=== PATIENT | male | born 1960 | race Caucasian/White ===

== ENCOUNTER 2024-01-21 11:55 | Inpatient (IN) | payer MEDICARE, MEDICAID, SELFPAY ==
--- NOTE | 2024-01-21 | ECG_ITS ---
Test Reason : QT INTERVAL Blood Pressure : / mmHG Vent. Rate : 082 BPM Atrial Rate : 082 BPM P-R Int : 172 ms QRS Dur : 094 ms QT Int : 378 ms P-R-T Axes : 079 190 054 degrees QTc Int : 441 ms Normal sinus rhythm Right superior axis deviation Incomplete right bundle branch block Right ventricular hypertrophy Abnormal ECG When compared with ECG of 06-FEB-2006 22:31, Incomplete right bundle branch block is now Present Referred By: Francine Garces Electronically Signed By:LAURIE [place]
[2024-01-21 12:03] VITALS: BP 137/78; PULSE 105; RESP 16; TEMP 36.8; O2SAT 96; BMI 30.4
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
[2024-01-21 12:20] LABS: MANUAL DIFF FLAG NO
[2024-01-21 12:37] LABS: Alanine Aminotransferase 15 U/L (0-40); Albumin Level 4.1 g/dL (3.5-5.0); Alkaline Phosphatase 60 U/L (39-117); Anion Gap 17 (12-20); Aspartate Amino Transferase 14 U/L (5-37); Bilirubin Total 0.3 mg/dL (0.0-1.0); Blood Urea Nitrogen 12 mg/dL (9-16); Calcium 9.4 mg/dL (8.4-10.2); Carbon Dioxide 23 mmol/L (22-29); Chloride 106 mmol/L (96-108); Creatinine Clr Calc Pharmacy 97.2; Estimated Glomerular Filt Rate > 60; Ethanol < 10 mg/dL; Glucose Random 106 mg/dL (60-115); Magnesium 1.7 mg/dL (1.6-2.6); Sodium 142 mmol/L (135-145); Total Protein 6.4 g/dL (6.5-8.0)
[2024-01-21 12:38] VITALS: BP 142/73; PULSE 97; RESP 16; O2SAT 99
[2024-01-21 13:39] LABS: Basophils Absolute Auto 0.1 X10*3/uL (0.0-0.2); Basophils Percent Auto 0.6 % (0-2); Eosinophils Absolute Auto 0.2 X10*3/uL (0.0-0.4); Eosinophils Percent Auto 2.1 % (0-4); Hematocrit 39.6 % (42.0-52.0); Hemoglobin 12.8 g/dl (14.0-18.0); Imm Gran Abs Auto 0.03 X10*3/uL (0.00-0.03); Imm Gran Pct Auto 0.3 % (0.0-0.4); Lymphocytes Absolute Auto 1.6 X10*3/uL (1.2-4.9); Mean Corpuscular HGB Conc 32.3 g/dl (31.0-36.0); Mean Corpuscular Hemoglobin 29.1 pg (27.0-33.0); Mean Platelet Volume 10.9 fL (9.4-12.4); Monocytes Absolute Auto 0.6 X10*3/uL (0.1-1.2); Monocytes Percent Auto 6.1 % (2-11); Neutrophils Absolute Auto 6.6 x10*3/uL (2.0-8.3); Neutrophils Percent Auto 72.9 % (45-73); Platelet Count 262 X10*3/uL (160-400); Red Cell Distribution Width 13.6 % (11.0-16.0)
--- NOTE | 2024-01-21 13:43 | PC.NURSE ---
Pt comes to ED today for assistance with his MH. Denies SI/HI but reports seen at [facility] recently for the same thing. Medically stable, only reports pain to his R great toe. VSS, A&Ox3 and cooperative. Pt given snack and regular diet ordered. NAD at this time.
--- NOTE | 2024-01-21 14:11 | PC.NURSE ---
CARE team at bedside
[2024-01-21 15:27] LABS: Appearance Urine Clear; Color Urine Yellow; Glucose Urine UA Negative (Negative); Leukocyte Esterase Urine Negative (Negative); Nitrite Urine Negative (Negative); Urine Blood Negative (Negative); Urine Ketones Negative (Negative); Urine Protein Trace mg/dL (Neg-Trace)
[2024-01-21 15:39] LABS: Amphetamine Screen Urine Not Detected (Not Detect); Barbiturates, Urine Not Detected (Not Detect); Benzodiazepines Screen Urine Not Detected (Not Detect); Buprenorphine Scr Not Detected (Not Detect); Cannabinoid Screen Urine Not Detected (Not Detect); Cocaine Screen Urine Not Detected (Not Detect); Fentanyl, urine Not Detected (Not Detect); Methadone Screen, Urine Not Detected (Not Detect); Opiate Screen Urine Not Detected (Not Detect); Oxycodone Screen Urine Not Detected (Not Detect); Phencyclidine Screen Urine Not Detected (Not Detect)
--- NOTE | 2024-01-21 16:05 | PC.NURSE ---
Awaiting med rec per Pharmacy
--- NOTE | 2024-01-21 17:11 | PC.NURSE ---
Pt.'s home medication reconciliation complete.
[2024-01-21 19:54] VITALS: BP 136/81; PULSE 81; RESP 16; TEMP 36.6; O2SAT 98
[2024-01-21 20:00] VITALS: BP 170/89; PULSE 85; RESP 18; TEMP 36.4; O2SAT 97
[2024-01-21] MEDS: Donepezil HCl 10 MG TABLET PO (20:17)
[2024-01-21] MEDS: traZODone HCL 100 MG TABLET PO (20:17)
[2024-01-21] MEDS: Memantine HCl 10 MG TABLET PO (20:17)
[2024-01-21] MEDS: Lithium Carbonate 300 MG CAPSULE 600 MG PO (20:17)
[2024-01-21] MEDS: HaloperidoL 5 MG TABLET PO (20:17)
[2024-01-21] MEDS: metFORMIN HCl 1,000 MG TABLET 1000 MG PO (20:20)
[2024-01-21] MEDS: Nicotine 21 MG PATCH.TD24 TRANSDERMA (21:44)
[2024-01-21] MEDS: hydrOXYzine HCL 25 MG TABLET PO (21:45)
[2024-01-21] MEDS: Nicotine Polacrilex 2 MG GUM 4 MG BUCCAL (21:47)
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
[2024-01-22] MEDS: Omeprazole 20 MG CAPSULE.DR PO (06:15)
[2024-01-22 07:00] VITALS: BMI 33.5
[2024-01-22 08:00] VITALS: BP 128/77; BP 130/61; PULSE 71; PULSE 85; RESP 18; TEMP 36.3; O2SAT 96; O2SAT 97
[2024-01-22 08:48] LABS: Lithium 0.43 mmol/L (0.60-1.20)
[2024-01-22 08:56] LABS: Estimated Average Glucose 105 mg/dL; Hemoglobin A1c % 5.3 % (<6.0)
[2024-01-22 09:03] LABS: Cholesterol 109 mg/dL (<200); HDL Cholesterol 39 mg/dL (>40); LDL Cholesterol Calculated 49 mg/dL (<100); Magnesium 1.8 mg/dL (1.6-2.6); Triglycerides 108 mg/dL (<150)
[2024-01-22] MEDS: Memantine HCl 10 MG TABLET PO ×2 (09:19→20:43)
[2024-01-22] MEDS: ARIPiprazole 10 MG TABLET PO (09:19)
[2024-01-22 09:20] LABS: Free T4 (Free Thyroxine) 1.05 ng/dL (0.71-1.85); Thyroid Stimulating Hormone 2.26 uIU/mL (0.32-4.0)
[2024-01-22] MEDS: metFORMIN HCl 1,000 MG TABLET 1000 MG PO ×2 (09:20→18:04)
[2024-01-22] MEDS: Atorvastatin Calcium 20 MG TABLET PO (09:20)
[2024-01-22] MEDS: Ezetimibe 10 MG TABLET PO (09:20)
[2024-01-22] MEDS: HaloperidoL 5 MG TABLET PO ×3 (09:20→20:42)
[2024-01-22] MEDS: DULoxetine HCl 60 MG CAPSULE.DR 120 MG PO (09:20)
[2024-01-22 09:32] LABS: Folate 9.4 ng/mL (> or = 4.0); Vitamin B12 280 pg/mL (200-900)
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
[2024-01-22] MEDS: hydrOXYzine HCL 25 MG TABLET PO (10:24)
[2024-01-22] MEDS: Nicotine 21 MG PATCH.TD24 TRANSDERMA (10:27)
[2024-01-22] MEDS: Milk of Magnesia 30 ML ORAL.SUSP PO (13:09)
--- NOTE | 2024-01-22 15:12 | MHC.SL.SWA ---
Speech Pathologist Impression: Risk of aspiration Risk of Aspiration Due to: Reduced Cognition Dysphasia Diet Status: No change at this time Liquid Consistency and Strategies for Safe Swallow: Liquid Intake Recommendation: Thin Liquid Intake Strategies: Small Sips No Straws Solid Food Consistency: Dietary Recommendations: Grnd/Mech Altered (NDD2) Additional Modifications to Solid Foods: Patient is edentulous, has bottom dentures with him but reports his top dentures are broken and left at home. Patient reports he choked once at home one week prior to coming to the hospital. He was also observed by nursing staff to be choking on a piece of a wrap, requiring the Heimlich maneuver. Given patient's recent choking episodes, recommend CONTINUE on a GROUND/MECH ALTERED (NDD2) diet and THIN liquids, with pills WHOLE with LIQUID. Patient is recommended direct supervision and aspiration precautions. Oral Medication Intake: Whole with Liquid Please contact the pharmacy regarding appropriate crushable or liquid drug formulations that are available whenever modified delivery is recommended. Compensatory Strategies and Precautions to be Taken for Safe Swallow: Sitting Upright (90 deg) Double Swallow Liquids from Cup Small Bites and Sips Alternate Liquids/Solids Rate of Ingestion Change Avoid Specific Foods Supervision While Eating and Drinking for Safe Swallow: Total Supervision (1:1) Foods to Avoid: Hard, tough to chew solids, crunchy or chewy foods. Swallowing Recommended Treatments: Compens. Strategy Educat. Recommendation for Speech: Inpatient Speech Therapy Comment: RESISTANCE BRAZER will continue to monitor diet modification/feeding needs and re-assess for potential upgrade if appropriate. Frequency/Duration: Date Range for Service Req: Timeline to reassess: Hired Hand Clinican/Clinical Fellow: No Supervisory Statement: I have reviewed and agree with the student/clinical fellow's documentation: N/A Speech Language Pathologist: Leonor Torres M.A., CCC-RESISTANCE BRAZER
--- NOTE | 2024-01-22 16:36 | PC.NURSE ---
During lunch Stephen choked on a chicken wrap, [facility] did the heimlich maneuver. Stephen appeared to be breathing, he took a sip of water and threw up the piece of chicken wrap. VS obtained, Dr. Schofield notified. Speech evaluation ordered, he reported he uses dentures, didn't have them on, reports he only brought in bottom dentures. He was assessed he was recommended ground mechanical altered (NDD2) diet, thin liquids, pills whole with liquid, direct supervision and aspiration precautions.
[2024-01-22] MEDS: Docusate Sodium 100 MG CAPSULE PO (18:04)
[2024-01-22 18:15] VITALS: BP 155/75
[2024-01-22] MEDS: cloNIDine HCL 0.1 MG TABLET PO (18:15)
[2024-01-22 20:00] VITALS: BP 149/74; PULSE 99; TEMP 36.3; O2SAT 97
[2024-01-22] MEDS: traZODone HCL 100 MG TABLET PO (20:42)
[2024-01-22] MEDS: Donepezil HCl 10 MG TABLET PO (20:42)
[2024-01-22] MEDS: Lithium Carbonate ER 450 MG TABLET.ER 900 MG PO (20:42)
[2024-01-23] MEDS: Omeprazole 20 MG CAPSULE.DR PO (07:19)
[2024-01-23 08:00] VITALS: BP 108/59; PULSE 91; RESP 16; TEMP 36.4; O2SAT 98
[2024-01-23] MEDS: Acetaminophen 325 MG TABLET 650 MG PO ×2 (09:08→20:14)
[2024-01-23] MEDS: Docusate Sodium 100 MG CAPSULE PO (09:09)
[2024-01-23] MEDS: Atorvastatin Calcium 20 MG TABLET PO (09:09)
[2024-01-23] MEDS: Memantine HCl 10 MG TABLET PO ×2 (09:09→20:05)
[2024-01-23] MEDS: ARIPiprazole 10 MG TABLET PO (09:09)
[2024-01-23] MEDS: HaloperidoL 5 MG TABLET PO ×2 (09:10→20:06)
[2024-01-23] MEDS: metFORMIN HCl 1,000 MG TABLET 1000 MG PO ×3 (09:10→20:07)
[2024-01-23] MEDS: DULoxetine HCl 60 MG CAPSULE.DR 120 MG PO (09:10)
[2024-01-23] MEDS: Ezetimibe 10 MG TABLET PO (09:15)
[2024-01-23] MEDS: Glycopyrrolate 1 MG TABLET PO (09:16)
[2024-01-23 14:10] VITALS: BP 137/71
[2024-01-23] MEDS: cloNIDine HCL 0.1 MG TABLET PO (14:10)
--- NOTE | 2024-01-23 14:36 | MHC.SL.SWA ---
Speech Pathologist Impression: Risk of aspiration, oral phase dysphagia Risk of Aspiration Due to: Reduced Cognition Dysphasia Diet Status: No change Liquid Consistency and Strategies for Safe Swallow: Liquid Intake Recommendation: Thin Liquid Intake Strategies: Small Sips Solid Food Consistency: Dietary Recommendations: Grnd/Mech Altered (NDD2) Additional Modifications to Solid Foods: Patient is edentulous, has bottom dentures with him but reports his top dentures are broken and left at home. Patient reports he choked once at home one week prior to coming to the hospital. He was also observed by nursing staff to be choking on a piece of a wrap, requiring the Heimlich maneuver. Given patient's recent choking episodes, recommend CONTINUE on a GROUND/MECH ALTERED (NDD2) diet and THIN liquids, with pills WHOLE with LIQUID. Patient is recommended direct supervision and aspiration precautions. Oral Medication Intake: Whole with Liquid Please contact the pharmacy regarding appropriate crushable or liquid drug formulations that are available whenever modified delivery is recommended. Compensatory Strategies and Precautions to be Taken for Safe Swallow: Sitting Upright (90 deg) Small Bites and Sips Alternate Liquids/Solids Rate of Ingestion Change Avoid Specific Foods Supervision While Eating and Drinking for Safe Swallow: Total Supervision (1:1) Foods to Avoid: Hard, tough to chew solids, crunchy or chewy foods. Swallowing Recommended Treatments: Compens. Strategy Educat. Recommendation for Speech: Inpatient Speech Therapy Comment: MOLD CONSTRUCTION SUPERVISOR will continue to monitor diet modification/feeding needs and re-assess for potential upgrade if appropriate. Frequency/Duration: Date Range for Service Req: Timeline to reassess: Relocation Specialist Clinican/Clinical Fellow: No Supervisory Statement: I have reviewed and agree with the student/clinical fellow's documentation: N/A Speech Language Pathologist: Leonor Torres M.A., CCC-MOLD CONSTRUCTION SUPERVISOR
--- NOTE | 2024-01-23 19:23 | P.PNPSI_ITS ---
Subjective Subjective Date of Service: 01/23/24 Reason For Visit: Schizoaffective disorder, depressed Interim History: Met with patient; discussed with team Patient says that he is feeling a little better today, less anxious, less depressed and less intrusive thoughts. He is hoping perhaps that increasing the lithium is already starting to take effect. Patient continues to agree with this medication regimen rather than increasing antipsychotic medications. Master Carpenter called and left message for outpatient psych provider to discuss for which patient was grateful. Patient shared about his past life, several traumatic experiences and how they have affected him; missing his family and family dynamics. Patient's VNA said that about a year ago he allowed a friend of his to live in his house which was stressful and somewhat traumatic for and that since then patient has been struggling where he was stable for years prior. Master Carpenter asked about this and patient agreed that perhaps this is relevant. He says this person is push she and pushed herself on him and he has trouble saying no. He felt his space was invaded and agrees that perhaps it was since then that he started to struggle more. Mental Status Exam Mental Status Exam Narrative: Pt is alert and oriented; behavior is cooperative, friendly and calm; patient is not in distress; dressed in casual attire and adequately groomed; mood is described as depressed... Anxious and affect congruent; eye contact appropriate; Speech is a little slowed; normal volume and prosody; psychomotor retardation present; thought process is organized and goal directed; Thought content is on depressive and anxiety symptoms; otherwise pertinent to relevant topics; some intrusive paranoid ideations about people judging him; denies any SI/HI. There is no evidence of perceptual disturbance and denies AVH. Patients insight and judgment impaired Diagnostics Vital Signs (24Hr): Vital Signs - 24 hr 01/22/24 20:00 01/23/24 08:00 01/23/24 14:10 Temperature 97.3 F 97.6 F Pulse Rate 99 91 Respiratory Rate 16 Blood Pressure 149/74 H 108/59 L 137/71 Pulse Oximetry 97 98 Oxygen Delivery Method Room Air Room Air BMI result Body Mass Index 33.5 Labs 01/21/24 12:16 01/21/24 12:16 Labs: Laboratory Results - last 48 hr 01/22/24 08:16 Estimat Average Glucose 105 Hemoglobin A1c % 5.3 Magnesium 1.8 Triglycerides 108 Cholesterol 109 LDL Cholesterol, Calc 49 HDL Cholesterol 39 L Vitamin B12 280 Folate 9.4 TSH 2.26 Free T4 1.05 [place] 0.43 L Medications Medications Current Medications Acetaminophen (Acetaminophen 325 Mg Tablet) 650 mg PO Q6H PRN PRN Reason: Headache/Pain Mild Scale (1-3) Last Admin: 01/23/24 09:08 Dose: 650 mg Al Hydroxide/Mg Hydroxide (Magnesium Hydrox/Alum Hydrox 30 Ml Oral.Susp) 30 ml PO Q6H PRN PRN Reason: Heartburn/Nausea Aripiprazole (Aripiprazole 10 Mg Tablet) 10 mg PO DAILY BELIA Last Admin: 01/23/24 09:09 Dose: 10 mg Atorvastatin Calcium (Atorvastatin Calcium 20 Mg Tablet) 20 mg PO DAILY BELIA Last Admin: 01/23/24 09:09 Dose: 20 mg Clonidine HCl (Clonidine Hcl 0.1 Mg Tablet) 0.1 mg PO Q4H PRN; Protocol PRN Reason: anxiety Last Admin: 01/23/24 14:10 Dose: 0.1 mg Clozapine 300 mg/ Clozapine 50 (mg) 350 mg PO BEDTIME BELIA Last Admin: 01/22/24 20:43 Dose: 350 mg Docusate Sodium (Docusate Sodium 100 Mg Capsule) 100 mg PO DAILY BELIA Last Admin: 01/23/24 09:09 Dose: 100 mg Donepezil HCl (Donepezil Hcl 10 Mg Tablet) 10 mg PO BEDTIME BELIA Last Admin: 01/22/24 20:42 Dose: 10 mg Duloxetine HCl (Duloxetine Hcl 60 Mg Capsule.Dr) 120 mg PO DAILY BELIA Last Admin: 01/23/24 09:10 Dose: 120 mg Ezetimibe (Ezetimibe 10 Mg Tablet) 10 mg PO DAILY BELIA Last Admin: 01/23/24 09:15 Dose: 10 mg Glycopyrrolate (Glycopyrrolate 1 Mg Tablet) 1 mg PO DAILY BELIA Last Admin: 01/23/24 09:16 Dose: 1 mg Haloperidol (Haloperidol 5 Mg Tablet) 5 mg PO BID BELIA Last Admin: 01/23/24 09:10 Dose: 5 mg [place] Carbonate ([place] Carbonate Er 450 Mg Tablet.Er) 900 mg PO BEDTIME BELIA Last Admin: 01/22/24 20:42 Dose: 900 mg Magnesium Hydroxide (Milk Of Magnesia 30 Ml Oral.Susp) 30 ml PO DAILY PRN PRN Reason: Constipation Last Admin: 01/22/24 13:09 Dose: 30 ml Memantine (Memantine Hcl 10 Mg Tablet) 10 mg PO BID [facility] Last Admin: 01/23/24 09:09 Dose: 10 mg Metformin HCl (Metformin Hcl 1,000 Mg Tablet) 1,000 mg PO BIDWM [facility] Last Admin: 01/23/24 19:15 Dose: Not Given Nicotine (Nicotine 21 Mg Patch.Td24) 21 mg TRANSDERMA DAILY PRN PRN Reason: nicotine cravings Last Admin: 01/22/24 10:27 Dose: 21 mg Nicotine Polacrilex (Nicotine Polacrilex 2 Mg Gum) 4 mg BUCCAL Q2H PRN PRN Reason: Nicotine Cravings Last Admin: 01/21/24 21:47 Dose: 4 mg Omeprazole (Omeprazole 20 Mg Capsule.Dr) 20 mg PO DAILY@0630 [facility] Last Admin: 01/23/24 07:19 Dose: 20 mg Trazodone HCl (Trazodone Hcl 100 Mg Tablet) 100 mg PO BEDTIME [facility] Last Admin: 01/22/24 20:42 Dose: 100 mg Allergies Allergies Allergy/AdvReac Type Severity Reaction Status Date / Time divalproex sodium Allergy Confusion Verified 01/21/24 12:06 [From Depakote] Assessment & Plan Assessment & Plan (1) Schizoaffective disorder, depressive type: Status: Acute Code(s): F25.1 - Schizoaffective disorder, depressive type (2) PTSD (post-traumatic stress disorder): Status: Acute Code(s): F43.10 - Post-traumatic stress disorder, unspecified (3) Dementia: Status: Acute Code(s): F03.90 - Unspecified dementia, unspecified severity, without behavioral disturbance, psychotic disturbance, mood disturbance, and anxiety Plan Patient is a 63-year-old male with history of schizoaffective disorder, depressed type, anxiety, PTSD, possibly OCD with intrusive thoughts and newer diagnosis of dementia who self presents for worsening depression and anxiety. Patient reports that he is not sure exactly why but he said over the past few months he has felt increasingly paranoid which he describes says worried that people are judging him, thinking about him negatively and thus is afraid to leave the house. He said in the past he could rationalize himself through it, however lately that is been very difficult. He is also afraid of having a panic attack. Patient denies any AVH current or past. Patient repeats he just has a lot of anxiety and depression. Patient also wonders if some of the depression is due to newly diagnosed of dementia as he is aware of increasing forgetfulness and worried about eventually having to go to a home. Also reports some gait disturbance with some recent falls. Patient denies any SI or HI; denies any substance abuse. Formulation/clinical reasoning: Long history of mental illness with diagnosis of schizoaffective disorder, bipolar type. Patient talks about paranoid delusions however it sounds a little more like OCD intrusive thoughts; will continue to explore He is unsure about why his medications are arranged as such and why additional antipsychotics were added instead of Clozaril dose increased (Clozaril for 25 years...Abilify >5 years...Haldol for 2 years). Reviewed labs, med regimen; agrees to increase lithium since it is subtherapeutic and much of his complaint is depression which may be driving anxiety and intrusive thoughts. Patient has a VNA and is consistent with meds -regarding new diagnosis of dementia, patient is already on Namenda and Aricept; will observe gait, however will keep in mind that parkinsonian symptoms might also be due to medications Hospital course: 01/22Patient says that he is feeling a little better today, less anxious, less depressed and less intrusive thoughts. He is hoping perhaps that increasing the lithium is already starting to take effect. Patient continues to agree with this medication regimen rather than increasing antipsychotic medications. Master Carpenter called and left message for outpatient psych provider Patient shared about his past life, several traumatic experiences and how they have affected him; missing his family and family dynamics. Discussed VNA report about incident a year ago when acquaintance/friend who he allowed to live with them had how stressful this event was; patient agrees that perhaps it was since then he has been struggling more -patient very worried about progression of dementia; will discuss case with Dr. Casper for advice on medications Plan: CV Q 15 minute checks IncreaseD lithium to 900 mg q.h.s.; current dose subtherapeutic Continue Clozaril 350 mg; patient initially wanted higher but agrees to increasing lithium instead Continue Abilify 10 mg daily Continue Haldol 5 mg b.i.d. Will add glycopyrrolate at patient's request for daytime drooling, likely due to Clozaril Reach out for collateral, prescriber to discuss medication regimen Consider SSRI for what sounds like perhaps OCD symptoms Patient educated on: diagnosis, medication risk/benefits and therapeutic strategies Informed Consent: understands Reason for continued inpatient stay Substantial Risk for: rapid decompensation Time Spent With Patient Time: Total time managing care of this patient today ____ minutes.
[2024-01-23 20:00] VITALS: BP 124/60; PULSE 86; TEMP 36.4; O2SAT 98
[2024-01-23] MEDS: Donepezil HCl 10 MG TABLET PO (20:05)
[2024-01-23] MEDS: Lithium Carbonate ER 450 MG TABLET.ER 900 MG PO (20:05)
[2024-01-23] MEDS: traZODone HCL 100 MG TABLET PO (20:06)
[2024-01-24] MEDS: Omeprazole 20 MG CAPSULE.DR PO (07:20)
[2024-01-24 08:00] VITALS: BP 117/58; PULSE 91; RESP 20; TEMP 36.4; O2SAT 95
[2024-01-24] MEDS: DULoxetine HCl 60 MG CAPSULE.DR 120 MG PO (08:28)
[2024-01-24] MEDS: ARIPiprazole 10 MG TABLET PO (08:29)
[2024-01-24] MEDS: Atorvastatin Calcium 20 MG TABLET PO (08:29)
[2024-01-24] MEDS: metFORMIN HCl 1,000 MG TABLET 1000 MG PO ×2 (08:29→17:12)
[2024-01-24] MEDS: Glycopyrrolate 1 MG TABLET PO (08:30)
[2024-01-24] MEDS: HaloperidoL 5 MG TABLET PO ×2 (08:31→20:40)
[2024-01-24] MEDS: Docusate Sodium 100 MG CAPSULE PO (08:31)
[2024-01-24] MEDS: Ezetimibe 10 MG TABLET PO (08:31)
[2024-01-24] MEDS: Memantine HCl 10 MG TABLET PO ×2 (08:31→20:40)
[2024-01-24] MEDS: Acetaminophen 325 MG TABLET 650 MG PO ×2 (09:01→20:40)
[2024-01-24 10:11] VITALS: BP 120/66; PULSE 89
[2024-01-24] MEDS: cloNIDine HCL 0.1 MG TABLET PO ×2 (10:14→17:24)
--- NOTE | 2024-01-24 11:48 | HO.PSYCHPN ---
Subjective Subjective Date of Service: 01/24/24 Reason For Visit: Schizoaffective disorder, depressed Subjective Notes: Conditional Voluntary Interim History: He has been visible but continues to be flat and guarded. Eating and sleeping adequately. No complaints of depression or anxiety. No SI. He is on aspiration because of a recent swallowing problem. No changes were made today. Review of Systems Review of Systems Yes all other systems are reviewed and are negative Mental Status Exam Mental Status Exam Narrative: In today's visit he is alert, oriented and pleasant. Normal speech. Moderate eye contact. Affect is appropriate and contained. Moderate dysphoria present. No signs of psychosis. Cognitively is intact. No SI. No abnormalities of gait. No musculoskeletal issues. Judgment is intact Diagnostics Vital Signs (24Hr): Vital Signs - 24 hr 01/23/24 14:10 01/23/24 20:00 01/24/24 08:00 Temperature 97.5 F 97.5 F Pulse Rate 86 91 Respiratory Rate 20 Blood Pressure 137/71 124/60 117/58 L Pulse Oximetry 98 95 Oxygen Delivery Method Room Air Room Air 01/24/24 10:11 Temperature Pulse Rate 89 Respiratory Rate Blood Pressure 120/66 Pulse Oximetry Oxygen Delivery Method BMI result Body Mass Index 33.5 Labs 01/21/24 12:16 01/21/24 12:16 Medications Medications Current Medications Acetaminophen (Acetaminophen 325 Mg Tablet) 650 mg PO Q6H PRN PRN Reason: Headache/Pain Mild Scale (1-3) Last Admin: 01/24/24 09:01 Dose: 650 mg Al Hydroxide/Mg Hydroxide (Magnesium Hydrox/Alum Hydrox 30 Ml Oral.Susp) 30 ml PO Q6H PRN PRN Reason: Heartburn/Nausea Aripiprazole (Aripiprazole 10 Mg Tablet) 10 mg PO DAILY [facility] Last Admin: 01/24/24 08:29 Dose: 10 mg Atorvastatin Calcium (Atorvastatin Calcium 20 Mg Tablet) 20 mg PO DAILY [facility] Last Admin: 01/24/24 08:29 Dose: 20 mg Clonidine HCl (Clonidine Hcl 0.1 Mg Tablet) 0.1 mg PO Q4H PRN; Protocol PRN Reason: anxiety Last Admin: 01/24/24 10:14 Dose: 0.1 mg Clozapine 300 mg/ Clozapine 50 (mg) 350 mg PO BEDTIME [facility] Last Admin: 01/23/24 20:06 Dose: 350 mg Docusate Sodium (Docusate Sodium 100 Mg Capsule) 100 mg PO DAILY [facility] Last Admin: 01/24/24 08:31 Dose: 100 mg Donepezil HCl (Donepezil Hcl 10 Mg Tablet) 10 mg PO BEDTIME [facility] Last Admin: 01/23/24 20:05 Dose: 10 mg Duloxetine HCl (Duloxetine Hcl 60 Mg Capsule.) 120 mg PO DAILY [facility] Last Admin: 01/24/24 08:28 Dose: 120 mg Ezetimibe (Ezetimibe 10 Mg Tablet) 10 mg PO DAILY [facility] Last Admin: 01/24/24 08:31 Dose: 10 mg Glycopyrrolate (Glycopyrrolate 1 Mg Tablet) 1 mg PO DAILY [facility] Last Admin: 01/24/24 08:30 Dose: 1 mg Haloperidol (Haloperidol 5 Mg Tablet) 5 mg PO BID [facility] Last Admin: 01/24/24 08:31 Dose: 5 mg Lyk[place] Carbonate (Lykens Carbonate Er 450 Mg Tablet.Er) 900 mg PO BEDTIME [facility] Last Admin: 01/23/24 20:05 Dose: 900 mg Magnesium Hydroxide (Milk Of Magnesia 30 Ml Oral.Susp) 30 ml PO DAILY PRN PRN Reason: Constipation Last Admin: 01/22/24 13:09 Dose: 30 ml Memantine (Memantine Hcl 10 Mg Tablet) 10 mg PO BID [facility] Last Admin: 01/24/24 08:31 Dose: 10 mg Metformin HCl (Metformin Hcl 1,000 Mg Tablet) 1,000 mg PO BIDWM [facility] Last Admin: 01/24/24 08:29 Dose: 1,000 mg Nicotine (Nicotine 21 Mg Patch.Td24) 21 mg TRANSDERMA DAILY PRN PRN Reason: nicotine cravings Last Admin: 01/22/24 10:27 Dose: 21 mg Nicotine Polacrilex (Nicotine Polacrilex 2 Mg Gum) 4 mg BUCCAL Q2H PRN PRN Reason: Nicotine Cravings Last Admin: 01/21/24 21:47 Dose: 4 mg Omeprazole (Omeprazole 20 Mg Capsule.) 20 mg PO DAILY@0630 [facility] Last Admin: 01/24/24 07:20 Dose: 20 mg Trazodone HCl (Trazodone Hcl 100 Mg Tablet) 100 mg PO BEDTIME [facility] Last Admin: 01/23/24 20:06 Dose: 100 mg Allergies Allergies Allergy/AdvReac Type Severity Reaction Status Date / Time divalproex sodium Allergy Confusion Verified 01/21/24 12:06 [From Depakote] Assessment & Plan Assessment & Plan (1) Schizoaffective disorder, depressive type: Status: Acute Code(s): F25.1 - Schizoaffective disorder, depressive type (2) PTSD (post-traumatic stress disorder): Status: Acute Code(s): F43.10 - Post-traumatic stress disorder, unspecified (3) Dementia: Status: Acute Code(s): F03.90 - Unspecified dementia, unspecified severity, without behavioral disturbance, psychotic disturbance, mood disturbance, and anxiety Plan Patient is a 63-year-old male with history of schizoaffective disorder, depressed type, anxiety, PTSD, possibly OCD with intrusive thoughts and newer diagnosis of dementia who self presents for worsening depression and anxiety. Patient reports that he is not sure exactly why but he said over the past few months he has felt increasingly paranoid which he describes says worried that people are judging him, thinking about him negatively and thus is afraid to leave the house. He said in the past he could rationalize himself through it, however lately that is been very difficult. He is also afraid of having a panic attack. Patient denies any AVH current or past. Patient repeats he just has a lot of anxiety and depression. Patient also wonders if some of the depression is due to newly diagnosed of dementia as he is aware of increasing forgetfulness and worried about eventually having to go to a home. Also reports some gait disturbance with some recent falls. Patient denies any SI or HI; denies any substance abuse. Formulation/clinical reasoning: Long history of mental illness with diagnosis of schizoaffective disorder, bipolar type. Patient talks about paranoid delusions however it sounds a little more like OCD intrusive thoughts; will continue to explore He is unsure about why his medications are arranged as such and why additional antipsychotics were added instead of Clozaril dose increased (Clozaril for 25 years...Abilify >5 years...Haldol for 2 years). Reviewed labs, med regimen; agrees to increase lithium since it is subtherapeutic and much of his complaint is depression which may be driving anxiety and intrusive thoughts. Patient has a VNA and is consistent with meds -regarding new diagnosis of dementia, patient is already on Namenda and Aricept; will observe gait, however will keep in mind that parkinsonian symptoms might also be due to medications Hospital course: 01/22Patient says that he is feeling a little better today, less anxious, less depressed and less intrusive thoughts. He is hoping perhaps that increasing the lithium is already starting to take effect. Patient continues to agree with this medication regimen rather than increasing antipsychotic medications. Tube Building Machine Operator called and left message for outpatient psych provider Patient shared about his past life, several traumatic experiences and how they have affected him; missing his family and family dynamics. Discussed VNA report about incident a year ago when acquaintance/friend who he allowed to live with them had how stressful this event was; patient agrees that perhaps it was since then he has been struggling more -patient very worried about progression of dementia; will discuss case with Dr. Casper for advice on medications 01/23: Continue current regimen and planslan Plan: CV Q 15 minute checks IncreaseD lithium to 900 mg q.h.s.; current dose subtherapeutic Continue Clozaril 350 mg; patient initially wanted higher but agrees to increasing lithium instead Continue Abilify 10 mg daily Continue Haldol 5 mg b.i.d. Will add glycopyrrolate at patient's request for daytime drooling, likely due to Clozaril Reach out for collateral, prescriber to discuss medication regimen Consider SSRI for what sounds like perhaps OCD symptoms Reason for continued inpatient stay Substantial Risk for: med/psych decompensation Time Spent With Patient Time: Total time managing care of this patient today ____ minutes.
[2024-01-24 17:24] VITALS: BP 106/60
[2024-01-24 17:25] VITALS: BP 106/60; PULSE 90; RESP 16; TEMP 36.4; O2SAT 97
[2024-01-24 20:00] VITALS: BP 122/66; PULSE 90; TEMP 36.3; O2SAT 98
[2024-01-24] MEDS: Lithium Carbonate ER 450 MG TABLET.ER 900 MG PO (20:39)
[2024-01-24] MEDS: Donepezil HCl 10 MG TABLET PO (20:39)
[2024-01-24] MEDS: traZODone HCL 100 MG TABLET PO (20:39)
[2024-01-25] MEDS: Omeprazole 20 MG CAPSULE.DR PO (06:34)
[2024-01-25 08:35] VITALS: BP 131/64; PULSE 89; RESP 20; TEMP 36.3; O2SAT 97
[2024-01-25] MEDS: ARIPiprazole 10 MG TABLET PO (08:37)
[2024-01-25] MEDS: Docusate Sodium 100 MG CAPSULE PO (08:38)
[2024-01-25] MEDS: HaloperidoL 5 MG TABLET PO ×2 (08:38→19:59)
[2024-01-25] MEDS: Atorvastatin Calcium 20 MG TABLET PO (08:38)
[2024-01-25] MEDS: Ezetimibe 10 MG TABLET PO (08:38)
[2024-01-25] MEDS: DULoxetine HCl 60 MG CAPSULE.DR 120 MG PO (08:39)
[2024-01-25] MEDS: Memantine HCl 10 MG TABLET PO ×2 (08:40→20:01)
[2024-01-25] MEDS: Glycopyrrolate 1 MG TABLET PO (08:40)
[2024-01-25] MEDS: metFORMIN HCl 1,000 MG TABLET 1000 MG PO ×2 (08:40→17:01)
--- NOTE | 2024-01-25 08:51 | HO.PSYCHPN ---
Subjective Subjective Date of Service: 01/25/24 Reason For Visit: Schizoaffective disorder, depressed Subjective Notes: Conditional Voluntary Interim History: He has been visible but still guarded and flat. Some paranoid ideations and intrusive thoughts reported. Sleeping adequately and eating adequately. He is requesting to go back on a regular diet which I will do no other complaints or side effects. No other changes were made today Review of Systems Review of Systems Yes all other systems are reviewed and are negative Mental Status Exam Mental Status Exam Narrative: In today's visit he is alert, oriented and pleasant. Normal speech. Good eye contact. Affect is appropriate and contained. Moderate dysphoria present. No signs of psychosis. Cognitively is intact. No SI. No abnormalities of gait. No musculoskeletal issues. Judgment is intact Diagnostics Vital Signs (24Hr): Vital Signs - 24 hr 01/24/24 10:11 01/24/24 17:24 01/24/24 17:25 Temperature 97.5 F Pulse Rate 89 90 Respiratory Rate 16 Blood Pressure 120/66 106/60 106/60 Pulse Oximetry 97 Oxygen Delivery Method Room Air 01/24/24 20:00 01/25/24 08:35 Temperature 97.3 F 97.3 F Pulse Rate 90 89 Respiratory Rate 20 Blood Pressure 122/66 131/64 Pulse Oximetry 98 97 Oxygen Delivery Method Room Air Room Air BMI result Body Mass Index 33.5 Labs 01/21/24 12:16 01/21/24 12:16 Medications Medications Current Medications Acetaminophen (Acetaminophen 325 Mg Tablet) 650 mg PO Q6H PRN PRN Reason: Headache/Pain Mild Scale (1-3) Last Admin: 01/24/24 20:40 Dose: 650 mg Al Hydroxide/Mg Hydroxide (Magnesium Hydrox/Alum Hydrox 30 Ml Oral.Susp) 30 ml PO Q6H PRN PRN Reason: Heartburn/Nausea Aripiprazole (Aripiprazole 10 Mg Tablet) 10 mg PO DAILY [facility] Last Admin: 01/25/24 08:37 Dose: 10 mg Atorvastatin Calcium (Atorvastatin Calcium 20 Mg Tablet) 20 mg PO DAILY [facility] Last Admin: 01/25/24 08:38 Dose: 20 mg Clonidine HCl (Clonidine Hcl 0.1 Mg Tablet) 0.1 mg PO Q4H PRN; Protocol PRN Reason: anxiety Last Admin: 01/24/24 17:24 Dose: 0.1 mg Clozapine 300 mg/ Clozapine 50 (mg) 350 mg PO BEDTIME [facility] Last Admin: 01/24/24 20:39 Dose: 350 mg Docusate Sodium (Docusate Sodium 100 Mg Capsule) 100 mg PO DAILY [facility] Last Admin: 01/25/24 08:38 Dose: 100 mg Donepezil HCl (Donepezil Hcl 10 Mg Tablet) 10 mg PO BEDTIME [facility] Last Admin: 01/24/24 20:39 Dose: 10 mg Duloxetine HCl (Duloxetine Hcl 60 Mg Capsule.Dr) 120 mg PO DAILY [facility] Last Admin: 01/25/24 08:39 Dose: 120 mg Ezetimibe (Ezetimibe 10 Mg Tablet) 10 mg PO DAILY [facility] Last Admin: 01/25/24 08:38 Dose: 10 mg Glycopyrrolate (Glycopyrrolate 1 Mg Tablet) 1 mg PO DAILY [facility] Last Admin: 01/25/24 08:40 Dose: 1 mg Haloperidol (Haloperidol 5 Mg Tablet) 5 mg PO BID [facility] Last Admin: 01/25/24 08:38 Dose: 5 mg [place] Carbonate ([place] Carbonate Er 450 Mg Tablet.Er) 900 mg PO BEDTIME [facility] Last Admin: 01/24/24 20:39 Dose: 900 mg Magnesium Hydroxide (Milk Of Magnesia 30 Ml Oral.Susp) 30 ml PO DAILY PRN PRN Reason: Constipation Last Admin: 01/22/24 13:09 Dose: 30 ml Memantine (Memantine Hcl 10 Mg Tablet) 10 mg PO BID [facility] Last Admin: 01/25/24 08:40 Dose: 10 mg Metformin HCl (Metformin Hcl 1,000 Mg Tablet) 1,000 mg PO BIDWM [facility] Last Admin: 01/25/24 08:40 Dose: 1,000 mg Nicotine (Nicotine 21 Mg Patch.Td24) 21 mg TRANSDERMA DAILY PRN PRN Reason: nicotine cravings Last Admin: 01/22/24 10:27 Dose: 21 mg Nicotine Polacrilex (Nicotine Polacrilex 2 Mg Gum) 4 mg BUCCAL Q2H PRN PRN Reason: Nicotine Cravings Last Admin: 01/21/24 21:47 Dose: 4 mg Omeprazole (Omeprazole 20 Mg Capsule.Dr) 20 mg PO DAILY@0630 [facility] Last Admin: 01/25/24 06:34 Dose: 20 mg Trazodone HCl (Trazodone Hcl 100 Mg Tablet) 100 mg PO BEDTIME [facility] Last Admin: 01/24/24 20:39 Dose: 100 mg Allergies Allergies Allergy/AdvReac Type Severity Reaction Status Date / Time divalproex sodium Allergy Confusion Verified 01/21/24 12:06 [From Depakote] Assessment & Plan Assessment & Plan (1) Schizoaffective disorder, depressive type: Status: Acute Code(s): F25.1 - Schizoaffective disorder, depressive type (2) PTSD (post-traumatic stress disorder): Status: Acute Code(s): F43.10 - Post-traumatic stress disorder, unspecified (3) Dementia: Status: Acute Code(s): F03.90 - Unspecified dementia, unspecified severity, without behavioral disturbance, psychotic disturbance, mood disturbance, and anxiety Plan Patient is a 63-year-old male with history of schizoaffective disorder, depressed type, anxiety, PTSD, possibly OCD with intrusive thoughts and newer diagnosis of dementia who self presents for worsening depression and anxiety. Patient reports that he is not sure exactly why but he said over the past few months he has felt increasingly paranoid which he describes says worried that people are judging him, thinking about him negatively and thus is afraid to leave the house. He said in the past he could rationalize himself through it, however lately that is been very difficult. He is also afraid of having a panic attack. Patient denies any AVH current or past. Patient repeats he just has a lot of anxiety and depression. Patient also wonders if some of the depression is due to newly diagnosed of dementia as he is aware of increasing forgetfulness and worried about eventually having to go to a home. Also reports some gait disturbance with some recent falls. Patient denies any SI or HI; denies any substance abuse. Formulation/clinical reasoning: Long history of mental illness with diagnosis of schizoaffective disorder, bipolar type. Patient talks about paranoid delusions however it sounds a little more like OCD intrusive thoughts; will continue to explore He is unsure about why his medications are arranged as such and why additional antipsychotics were added instead of Clozaril dose increased (Clozaril for 25 years...Abilify >5 years...Haldol for 2 years). Reviewed labs, med regimen; agrees to increase lithium since it is subtherapeutic and much of his complaint is depression which may be driving anxiety and intrusive thoughts. Patient has a VNA and is consistent with meds -regarding new diagnosis of dementia, patient is already on Namenda and Aricept; will observe gait, however will keep in mind that parkinsonian symptoms might also be due to medications Hospital course: 01/22Patient says that he is feeling a little better today, less anxious, less depressed and less intrusive thoughts. He is hoping perhaps that increasing the lithium is already starting to take effect. Patient continues to agree with this medication regimen rather than increasing antipsychotic medications. Practice Office Associate called and left message for outpatient psych provider Patient shared about his past life, several traumatic experiences and how they have affected him; missing his family and family dynamics. Discussed VNA report about incident a year ago when acquaintance/friend who he allowed to live with them had how stressful this event was; patient agrees that perhaps it was since then he has been struggling more -patient very worried about progression of dementia; will discuss case with Dr. Casper for advice on medications 01/23: Continue current regimen and plans 01/24: Continue current regimen and plans Plan: CV Q 15 minute checks IncreaseD lithium to 900 mg q.h.s.; current dose subtherapeutic Continue Clozaril 350 mg; patient initially wanted higher but agrees to increasing lithium instead Continue Abilify 10 mg daily Continue Haldol 5 mg b.i.d. Will add glycopyrrolate at patient's request for daytime drooling, likely due to Clozaril Reach out for collateral, prescriber to discuss medication regimen Consider SSRI for what sounds like perhaps OCD symptoms Reason for continued inpatient stay Substantial Risk for: med/psych decompensation Time Spent With Patient Time: Total time managing care of this patient today ____ minutes.
[2024-01-25 12:11] VITALS: BP 147/71; PULSE 90
[2024-01-25] MEDS: cloNIDine HCL 0.1 MG TABLET PO ×2 (12:16→19:58)
[2024-01-25 19:44] VITALS: BP 150/81; PULSE 99; TEMP 36.9; O2SAT 98
[2024-01-25] MEDS: traZODone HCL 100 MG TABLET PO (19:58)
[2024-01-25] MEDS: Lithium Carbonate ER 450 MG TABLET.ER 900 MG PO (19:59)
[2024-01-25] MEDS: Donepezil HCl 10 MG TABLET PO (19:59)
[2024-01-26 05:23] LABS: Clozapine (Clozaril) 448 mcg/L; Norclozapine 222 mcg/L (25-400)
[2024-01-26] MEDS: Omeprazole 20 MG CAPSULE.DR PO (06:39)
[2024-01-26 08:00] VITALS: BP 112/54; PULSE 91; RESP 16; TEMP 36.4; O2SAT 98
[2024-01-26] MEDS: HaloperidoL 5 MG TABLET PO (08:40)
[2024-01-26] MEDS: Memantine HCl 10 MG TABLET PO ×2 (08:40→20:14)
[2024-01-26] MEDS: metFORMIN HCl 1,000 MG TABLET 1000 MG PO ×2 (08:40→18:22)
[2024-01-26] MEDS: ARIPiprazole 10 MG TABLET PO (08:40)
[2024-01-26] MEDS: Glycopyrrolate 1 MG TABLET PO (08:40)
[2024-01-26] MEDS: DULoxetine HCl 60 MG CAPSULE.DR 120 MG PO (08:41)
[2024-01-26] MEDS: Ezetimibe 10 MG TABLET PO (08:41)
[2024-01-26] MEDS: Atorvastatin Calcium 20 MG TABLET PO (08:41)
[2024-01-26] MEDS: Docusate Sodium 100 MG CAPSULE PO (08:41)
--- NOTE | 2024-01-26 09:53 | P.PNPSI_ITS ---
Subjective Subjective Date of Service: 01/26/24 Reason For Visit: Schizoaffective disorder, depressed Interim History: met with patient; discussed with team reports mood still seems better and anxiety down; wonders if maybe increased [place] might be enough. Says would like to get off one of ihis other antipsychotics, preferalby haldol Mental Status Exam Mental Status Exam Narrative: Pt is alert and oriented; behavior is cooperative, friendly and calm; patient is not in distress; dressed in casual attire and adequately groomed; mood is described as better and affect congruent; eye contact appropriate; Speech is normal rate, volume and prosody; no retardation present; thought process is organized and goal directed; Thought content is on treatment; otherwise pertinent to relevant topics; some intrusive paranoid ideations about people judging him; denies any SI/HI. There is no evidence of perceptual disturbance and denies AVH. Patients insight and judgment improving Diagnostics Vital Signs (24Hr): Vital Signs - 24 hr 01/25/24 12:11 01/25/24 19:44 Temperature 98.5 F Pulse Rate 90 99 Blood Pressure 147/71 H 150/81 H Pulse Oximetry 98 Oxygen Delivery Method Room Air BMI result Body Mass Index 33.5 Labs 01/21/24 12:16 01/21/24 12:16 Labs: Laboratory Results - last 48 hr 01/22/24 08:16 Clozapine 448 Norclozapine 222 Medications Medications Current Medications Acetaminophen (Acetaminophen 325 Mg Tablet) 650 mg PO Q6H PRN PRN Reason: Headache/Pain Mild Scale (1-3) Last Admin: 01/24/24 20:40 Dose: 650 mg Al Hydroxide/Mg Hydroxide (Magnesium Hydrox/Alum Hydrox 30 Ml Oral.Susp) 30 ml PO Q6H PRN PRN Reason: Heartburn/Nausea Aripiprazole (Aripiprazole 10 Mg Tablet) 10 mg PO DAILY [facility] Last Admin: 01/26/24 08:40 Dose: 10 mg Atorvastatin Calcium (Atorvastatin Calcium 20 Mg Tablet) 20 mg PO DAILY [facility] Last Admin: 01/26/24 08:41 Dose: 20 mg Clonidine HCl (Clonidine Hcl 0.1 Mg Tablet) 0.1 mg PO Q4H PRN; Protocol PRN Reason: anxiety Last Admin: 01/25/24 19:58 Dose: 0.1 mg Clozapine 300 mg/ Clozapine 50 (mg) 350 mg PO BEDTIME [facility] Last Admin: 01/25/24 19:58 Dose: 350 mg Docusate Sodium (Docusate Sodium 100 Mg Capsule) 100 mg PO DAILY [facility] Last Admin: 01/26/24 08:41 Dose: 100 mg Donepezil HCl (Donepezil Hcl 10 Mg Tablet) 10 mg PO BEDTIME [facility] Last Admin: 01/25/24 19:59 Dose: 10 mg Duloxetine HCl (Duloxetine Hcl 60 Mg Capsule.) 120 mg PO DAILY [facility] Last Admin: 01/26/24 08:41 Dose: 120 mg Ezetimibe (Ezetimibe 10 Mg Tablet) 10 mg PO DAILY [facility] Last Admin: 01/26/24 08:41 Dose: 10 mg Glycopyrrolate (Glycopyrrolate 1 Mg Tablet) 1 mg PO DAILY [facility] Last Admin: 01/26/24 08:40 Dose: 1 mg Haloperidol (Haloperidol 5 Mg Tablet) 5 mg PO BID [facility] Last Admin: 01/26/24 08:40 Dose: 5 mg [place] Carbonate ([place] Carbonate Er 450 Mg Tablet.Er) 900 mg PO BEDTIME [facility] Last Admin: 01/25/24 19:59 Dose: 900 mg Magnesium Hydroxide (Milk Of Magnesia 30 Ml Oral.Susp) 30 ml PO DAILY PRN PRN Reason: Constipation Last Admin: 01/22/24 13:09 Dose: 30 ml Memantine (Memantine Hcl 10 Mg Tablet) 10 mg PO BID [facility] Last Admin: 01/26/24 08:40 Dose: 10 mg Metformin HCl (Metformin Hcl 1,000 Mg Tablet) 1,000 mg PO BIDWM [facility] Last Admin: 01/26/24 08:40 Dose: 1,000 mg Nicotine (Nicotine 21 Mg Patch.Td24) 21 mg TRANSDERMA DAILY PRN PRN Reason: nicotine cravings Last Admin: 01/22/24 10:27 Dose: 21 mg Nicotine Polacrilex (Nicotine Polacrilex 2 Mg Gum) 4 mg BUCCAL Q2H PRN PRN Reason: Nicotine Cravings Last Admin: 01/21/24 21:47 Dose: 4 mg Omeprazole (Omeprazole 20 Mg Capsule.) 20 mg PO DAILY@0630 [facility] Last Admin: 01/26/24 06:39 Dose: 20 mg Trazodone HCl (Trazodone Hcl 100 Mg Tablet) 100 mg PO BEDTIME [facility] Last Admin: 01/25/24 19:58 Dose: 100 mg Allergies Allergies Allergy/AdvReac Type Severity Reaction Status Date / Time divalproex sodium Allergy Confusion Verified 01/21/24 12:06 [From Depakote] Assessment & Plan Assessment & Plan (1) Schizoaffective disorder, depressive type: Status: Acute Code(s): F25.1 - Schizoaffective disorder, depressive type (2) PTSD (post-traumatic stress disorder): Status: Acute Code(s): F43.10 - Post-traumatic stress disorder, unspecified (3) Dementia: Status: Acute Code(s): F03.90 - Unspecified dementia, unspecified severity, without behavioral disturbance, psychotic disturbance, mood disturbance, and anxiety Plan Patient is a 63-year-old male with history of schizoaffective disorder, depressed type, anxiety, PTSD, possibly OCD with intrusive thoughts and newer diagnosis of dementia who self presents for worsening depression and anxiety. Patient reports that he is not sure exactly why but he said over the past few months he has felt increasingly paranoid which he describes says worried that people are judging him, thinking about him negatively and thus is afraid to leave the house. He said in the past he could rationalize himself through it, however lately that is been very difficult. He is also afraid of having a panic attack. Patient denies any AVH current or past. Patient repeats he just has a lot of anxiety and depression. Patient also wonders if some of the depression is due to newly diagnosed of dementia as he is aware of increasing forgetfulness and worried about eventually having to go to a home. Also reports some gait disturbance with some recent falls. Patient denies any SI or HI; denies any substance abuse. Formulation/clinical reasoning: Long history of mental illness with diagnosis of schizoaffective disorder, bipolar type. Patient talks about paranoid delusions however it sounds a little more like OCD intrusive thoughts; will continue to explore He is unsure about why his medications are arranged as such and why additional antipsychotics were added instead of Clozaril dose increased (Clozaril for 25 years...Abilify >5 years...Haldol for 2 years). Reviewed labs, med regimen; agrees to increase lithium since it is subtherapeutic and much of his complaint is depression which may be driving anxiety and intrusive thoughts. Patient has a VNA and is consistent with meds -regarding new diagnosis of dementia, patient is already on Namenda and Aricept; will observe gait, however will keep in mind that parkinsonian symptoms might also be due to medications Hospital course: 01/22Patient says that he is feeling a little better today, less anxious, less depressed and less intrusive thoughts. He is hoping perhaps that increasing the lithium is already starting to take effect. Patient continues to agree with this medication regimen rather than increasing antipsychotic medications. Landscape Contractor called and left message for outpatient psych provider Patient shared about his past life, several traumatic experiences and how they have affected him; missing his family and family dynamics. Discussed VNA report about incident a year ago when acquaintance/friend who he allowed to live with them had how stressful this event was; patient agrees that perhaps it was since then he has been struggling more -patient very worried about progression of dementia; will discuss case with Dr. Casper for advice on medications 01/25 mood seems to be improving; says he feels better, anxiety down; will get Labs tomorrow for lithium level. -have not heard back from outpt provider Plan: CV Q 15 minute checks IncreaseD lithium to 900 mg q.h.s.; current dose subtherapeutic Continue Clozaril 350 mg; patient initially wanted higher but agrees to increasing lithium instead Continue Abilify 10 mg daily Continue Haldol 5 mg b.i.d. Will add glycopyrrolate at patient's request for daytime drooling, likely due to Clozaril Reach out for collateral, prescriber to discuss medication regimen Consider SSRI for what sounds like perhaps OCD symptoms Patient educated on: diagnosis and medication risk/benefits Informed Consent: understands Reason for continued inpatient stay Substantial Risk for: rapid decompensation Time Spent With Patient Time: Total time managing care of this patient today ____ minutes.
--- NOTE | 2024-01-26 13:07 | MHC.SL.SWA ---
Speech Pathologist Impression: Risk of aspiration, oral dysphagia Risk of Aspiration Due to: Reduced Cognition Dysphasia Diet Status: No changes at this time Liquid Consistency and Strategies for Safe Swallow: Liquid Intake Recommendation: Thin Liquid Intake Strategies: Small Sips Solid Food Consistency: Dietary Recommendations: Regular Additional Modifications to Solid Foods: Patient is recommended direct supervision and aspiration precautions. EXTRUSION MANAGER to f/u 1x to monitor tolerance of unmodified diet. Oral Medication Intake: Whole with Liquid Please contact the pharmacy regarding appropriate crushable or liquid drug formulations that are available whenever modified delivery is recommended. Compensatory Strategies and Precautions to be Taken for Safe Swallow: Sitting Upright (90 deg) Small Bites and Sips Alternate Liquids/Solids Rate of Ingestion Change Avoid Specific Foods Supervision While Eating and Drinking for Safe Swallow: Total Supervision (1:1) Foods to Avoid: Hard, tough to chew solids Swallowing Recommended Treatments: Compens. Strategy Educat. Recommendation for Speech: 1 f/u Aircraft Ordnance Technician Clinican/Clinical Fellow: No Supervisory Statement: I have reviewed and agree with the student/clinical fellow's documentation: N/A Speech Language Pathologist: Leonor Torres M.A., CCC-EXTRUSION MANAGER
[2024-01-26] MEDS: Acetaminophen 325 MG TABLET 650 MG PO (15:28)
[2024-01-26] MEDS: cloNIDine HCL 0.1 MG TABLET PO (15:36)
--- NOTE | 2024-01-26 18:12 | MHC.RECOVSUP ---
? Reason for consult Recovery Support o Current location: [id number] o Identified substance use concern: Heroin - Support ? Intervention: o Community resources provided o Harm reduction discussion ? Plan: o Patient to follow up with [facility] after discharge ? Additional information:Met with Patient we talked about Recovery and the different pathways. We talked about Harm reduction and Mental health . Patient stated that he would loke to go to a local intermodal truck driver recovery house and get a head boys tennis coach.
[2024-01-26 20:00] VITALS: BP 124/63; PULSE 93; RESP 16; TEMP 36.8; O2SAT 98
[2024-01-26] MEDS: Donepezil HCl 10 MG TABLET PO (20:13)
[2024-01-26] MEDS: Lithium Carbonate ER 450 MG TABLET.ER 900 MG PO (20:13)
[2024-01-26] MEDS: traZODone HCL 100 MG TABLET PO (21:21)
[2024-01-27] MEDS: LORazepam 1 MG TABLET PO (00:06)
[2024-01-27] MEDS: Omeprazole 20 MG CAPSULE.DR PO (07:03)
[2024-01-27 08:20] VITALS: BP 121/69; PULSE 89; RESP 18; TEMP 36.6; O2SAT 97
[2024-01-27] MEDS: Atorvastatin Calcium 20 MG TABLET PO (09:00)
[2024-01-27] MEDS: metFORMIN HCl 1,000 MG TABLET 1000 MG PO ×2 (09:00→17:19)
[2024-01-27] MEDS: Docusate Sodium 100 MG CAPSULE PO (09:00)
[2024-01-27] MEDS: Glycopyrrolate 1 MG TABLET PO (09:00)
[2024-01-27] MEDS: Memantine HCl 10 MG TABLET PO ×2 (09:00→20:18)
[2024-01-27] MEDS: DULoxetine HCl 60 MG CAPSULE.DR 120 MG PO (09:00)
[2024-01-27] MEDS: Ezetimibe 10 MG TABLET PO (09:00)
[2024-01-27] MEDS: ARIPiprazole 10 MG TABLET PO (09:00)
[2024-01-27 09:46] LABS: Lithium 0.69 mmol/L (0.60-1.20)
[2024-01-27 09:58] LABS: Blood Urea Nitrogen 12 mg/dL (9-16); Creatinine Clr Calc Pharmacy 99.6; Estimated Glomerular Filt Rate > 60
--- NOTE | 2024-01-27 12:18 | MHC.SL.DTX ---
Dysphagia Diet modifications: Last documented Solid diet consistencies: Regular Last documented Liquid consistency: Thin Changes made to current diet?: No: No change Liquid Consistency and Strategies: Liquid Intake Recommendation: Thin Compensatory Strategies for Safe Swallow: Small Sips Compensatory Strategies for Safe Swallow(b): Sitting Upright (90 deg) Small Bites and Sips Alternate Liquids/Solids Rate of Ingestion Change Avoid Specific Foods Solid Food Consistency: Dietary Recommendations: Regular Oral Medication Intake: Whole with Liquid Strategies and Precautions to be Taken for Safe Swallow: Sitting Upright (90 deg) Small Bites and Sips Alternate Liquids/Solids Rate of Ingestion Change Avoid Specific Foods Supervision While Eating and/Drinking: Total Supervision (1:1) Foods to Avoid: Hard, tough to chew solids Swallowing Recommended Treatments: Compens. Strategy Educat. Level of Impact on: Daily activities: None Interpersonal interactions: Education: None Employment: None Community: None Prognosis for Improvement: Good Recommendation for Speech: Inpatient Speech Therapy Comment: After discussion with the Pt, he agrees it will be preferrable for him to maintain an unrestricted diet and select items that he feels he can handle. Pt is stable with his current diet of Regular Solids and Thin Liquids. No further BITUMINOUS DISTRIBUTOR OPERATOR intervention required at this time, please re-refer if status changes. Additional Comments: Over the weekend, provider adjusted diet order to accomodate patient's request to have regular foods. Treatment: Pt is seen prior lunch. He has several bags of chips at his bedside table. He has no complaints about his diet selection. Incidentally he has his menu for tomorrow ready as well. He is noted to select softer items (Egg Salad [place], Baked Fish) over more difficult to chew solids (Cheeseburgers, Pizza) demonstrating good awareness of his limitations due to his lack of upper teeth/dentures. He tolerates sips of thin liquids with ease. He demonstrates again prolonged mastication with a regular solid (cracker), but is eventually able to manage it with adequate oral clearance and no overt s/s of aspiration. Hatchery Manager Clinican/Clinical Fellow: No Supervisory Statement: I have reviewed and agree with the student/clinical fellow's documentation: N/A Speech Language Pathologist: Cody Li M.A., [facility]-BITUMINOUS DISTRIBUTOR OPERATOR
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
[2024-01-27 17:19] VITALS: BP 147/74
[2024-01-27] MEDS: cloNIDine HCL 0.1 MG TABLET PO (17:19)
[2024-01-27 20:00] VITALS: BP 133/60; PULSE 97; RESP 18; TEMP 36.5; O2SAT 98
[2024-01-27] MEDS: Donepezil HCl 10 MG TABLET PO (20:18)
[2024-01-27] MEDS: HaloperidoL 0.5 MG TABLET 2.5 MG PO (20:18)
[2024-01-27] MEDS: Lithium Carbonate ER 450 MG TABLET.ER 900 MG PO (20:18)
[2024-01-27] MEDS: traZODone HCL 100 MG TABLET PO (20:18)
[2024-01-28] MEDS: Omeprazole 20 MG CAPSULE.DR PO (06:48)
[2024-01-28 08:00] VITALS: BP 120/71; PULSE 88; RESP 18; TEMP 36.5; O2SAT 97
[2024-01-28] MEDS: metFORMIN HCl 1,000 MG TABLET 1000 MG PO ×2 (08:50→16:53)
[2024-01-28] MEDS: Atorvastatin Calcium 20 MG TABLET PO (08:50)
[2024-01-28] MEDS: HaloperidoL 0.5 MG TABLET 2.5 MG PO ×2 (08:50→20:13)
[2024-01-28] MEDS: DULoxetine HCl 60 MG CAPSULE.DR 120 MG PO (08:51)
[2024-01-28] MEDS: Glycopyrrolate 1 MG TABLET PO (08:51)
[2024-01-28] MEDS: Ezetimibe 10 MG TABLET PO (08:51)
[2024-01-28] MEDS: cloNIDine HCL 0.1 MG TABLET PO ×2 (08:51→16:27)
[2024-01-28] MEDS: Memantine HCl 10 MG TABLET PO ×2 (08:51→20:13)
[2024-01-28] MEDS: ARIPiprazole 10 MG TABLET PO (08:51)
[2024-01-28] MEDS: Docusate Sodium 100 MG CAPSULE PO (08:51)
[2024-01-28 09:45] LABS: Neut%MD 72.3 %; Neutrophils Absolute Auto 8.7 x10*3/uL (2.0-8.3); WBCANC 12.1 X10*3/uL
[2024-01-28 11:03] LABS: Lithium 0.75 mmol/L (0.60-1.20)
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
[2024-01-28 13:37] LABS: Anion Gap 11 (12-20); Blood Urea Nitrogen 14 mg/dL (9-16); Carbon Dioxide 27 mmol/L (22-29); Chloride 106 mmol/L (96-108); Creatinine Clr Calc Pharmacy 105.6; Estimated Glomerular Filt Rate > 60; Sodium 140 mmol/L (135-145)
[2024-01-28 16:27] VITALS: BP 136/80
[2024-01-28 20:00] VITALS: BP 100/51; PULSE 96; RESP 16; TEMP 36.3; O2SAT 98
[2024-01-28] MEDS: Donepezil HCl 10 MG TABLET PO (20:13)
[2024-01-28] MEDS: traZODone HCL 100 MG TABLET PO (20:13)
[2024-01-28] MEDS: Lithium Carbonate ER 450 MG TABLET.ER 900 MG PO (20:13)
[2024-01-28] MEDS: Acetaminophen 325 MG TABLET 650 MG PO (20:35)
[2024-01-28 21:16] LABS: Glucose, Whole Blood 114 mg/dL (60-115)
[2024-01-29] MEDS: Omeprazole 20 MG CAPSULE.DR PO (06:53)
[2024-01-29 08:10] VITALS: BP 111/65; PULSE 91; RESP 16; TEMP 36.4; O2SAT 96
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
[2024-01-29] MEDS: Atorvastatin Calcium 20 MG TABLET PO (09:10)
[2024-01-29] MEDS: metFORMIN HCl 1,000 MG TABLET 1000 MG PO ×2 (09:10→17:38)
[2024-01-29] MEDS: Ezetimibe 10 MG TABLET PO (09:10)
[2024-01-29] MEDS: Memantine HCl 10 MG TABLET PO ×2 (09:10→20:09)
[2024-01-29] MEDS: Docusate Sodium 100 MG CAPSULE PO (09:10)
[2024-01-29] MEDS: Glycopyrrolate 1 MG TABLET PO (09:10)
[2024-01-29] MEDS: DULoxetine HCl 60 MG CAPSULE.DR 120 MG PO (09:10)
[2024-01-29] MEDS: ARIPiprazole 10 MG TABLET PO (09:10)
[2024-01-29 10:40] LABS: Glucose, Whole Blood 214 mg/dL (60-115)
[2024-01-29 11:55] VITALS: BP 131/81; PULSE 106; O2SAT 98
[2024-01-29] MEDS: cloNIDine HCL 0.1 MG TABLET PO (11:56)
[2024-01-29 20:00] VITALS: BP 110/68; PULSE 89; RESP 16; TEMP 36.3; O2SAT 99
[2024-01-29] MEDS: Donepezil HCl 10 MG TABLET PO (20:09)
[2024-01-29] MEDS: Lithium Carbonate ER 450 MG TABLET.ER 900 MG PO (20:10)
[2024-01-29] MEDS: HaloperidoL 0.5 MG TABLET 2.5 MG PO (20:10)
[2024-01-29] MEDS: traZODone HCL 100 MG TABLET PO (20:10)
[2024-01-29 22:25] LABS: Glucose, Whole Blood 105 mg/dL (60-115)
--- NOTE | 2024-01-30 | ECG_ITS ---
Test Reason : QTC CHECK Blood Pressure : / mmHG Vent. Rate : 091 BPM Atrial Rate : 091 BPM P-R Int : 178 ms QRS Dur : 082 ms QT Int : 350 ms P-R-T Axes : 068 114 057 degrees QTc Int : 430 ms Normal sinus rhythm Right axis deviation Right ventricular hypertrophy Abnormal ECG When compared with ECG of 21-JAN-2024 18:53, Questionable change in QRS axis Referred By: Fortunato Schofield Electronically Signed By:LAURIE [place]
[2024-01-30] MEDS: Omeprazole 20 MG CAPSULE.DR PO (07:19)
[2024-01-30 08:00] VITALS: BP 156/79; PULSE 93; RESP 16; TEMP 36.9; O2SAT 97
[2024-01-30 08:43] LABS: Glucose, Whole Blood 89 mg/dL (60-115)
[2024-01-30] MEDS: DULoxetine HCl 60 MG CAPSULE.DR 120 MG PO (08:55)
[2024-01-30 08:56] VITALS: BP 156/79
[2024-01-30] MEDS: Ezetimibe 10 MG TABLET PO (08:56)
[2024-01-30] MEDS: metFORMIN HCl 1,000 MG TABLET 1000 MG PO ×2 (08:56→17:59)
[2024-01-30] MEDS: ARIPiprazole 10 MG TABLET PO (08:56)
[2024-01-30] MEDS: Atorvastatin Calcium 20 MG TABLET PO (08:56)
[2024-01-30] MEDS: cloNIDine HCL 0.1 MG TABLET PO ×3 (08:56→20:44)
[2024-01-30] MEDS: Glycopyrrolate 1 MG TABLET PO (08:56)
[2024-01-30] MEDS: Memantine HCl 10 MG TABLET PO ×2 (08:56→20:45)
[2024-01-30] MEDS: Docusate Sodium 100 MG CAPSULE PO (09:14)
[2024-01-30] MEDS: HaloperidoL 0.5 MG TABLET 2.5 MG PO ×2 (11:37→20:45)
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
[2024-01-30] MEDS: buPROPion HCl XL 150 MG TAB.ER.24H PO (12:25)
[2024-01-30 14:27] VITALS: BP 142/82
[2024-01-30 20:00] VITALS: BP 117/60; PULSE 96; RESP 18; TEMP 36.7; O2SAT 97
[2024-01-30 20:44] VITALS: BP 117/60
[2024-01-30] MEDS: Donepezil HCl 10 MG TABLET PO (20:44)
[2024-01-30] MEDS: Lithium Carbonate ER 450 MG TABLET.ER 900 MG PO (20:45)
[2024-01-30] MEDS: traZODone HCL 100 MG TABLET PO (20:45)
[2024-01-31 08:30] VITALS: BP 144/79; PULSE 95; RESP 18; TEMP 36.6; O2SAT 98
[2024-01-31] MEDS: metFORMIN HCl 1,000 MG TABLET 1000 MG PO ×2 (08:30→18:06)
[2024-01-31] MEDS: Omeprazole 20 MG CAPSULE.DR PO (08:30)
[2024-01-31] MEDS: buPROPion HCl XL 150 MG TAB.ER.24H PO (09:04)
[2024-01-31] MEDS: Atorvastatin Calcium 20 MG TABLET PO (09:04)
[2024-01-31] MEDS: DULoxetine HCl 60 MG CAPSULE.DR 120 MG PO (09:04)
[2024-01-31] MEDS: ARIPiprazole 10 MG TABLET PO (09:04)
[2024-01-31] MEDS: Ezetimibe 10 MG TABLET PO (09:04)
[2024-01-31] MEDS: Docusate Sodium 100 MG CAPSULE PO (09:05)
[2024-01-31] MEDS: HaloperidoL 0.5 MG TABLET 2.5 MG PO ×2 (09:05→20:57)
[2024-01-31] MEDS: Memantine HCl 10 MG TABLET PO ×2 (09:05→20:56)
[2024-01-31] MEDS: Glycopyrrolate 1 MG TABLET PO (09:05)
[2024-01-31] MEDS: cloNIDine HCL 0.1 MG TABLET PO ×2 (09:17→14:34)
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
[2024-01-31 12:26] LABS: Glucose, Whole Blood 126 mg/dL (60-115)
[2024-01-31 14:34] VITALS: BP 143/74
[2024-01-31 20:00] VITALS: BP 119/61; PULSE 87; RESP 18; TEMP 36.9; O2SAT 98
[2024-01-31] MEDS: traZODone HCL 100 MG TABLET PO (20:57)
[2024-01-31] MEDS: Donepezil HCl 10 MG TABLET PO (20:57)
[2024-01-31] MEDS: Lithium Carbonate ER 450 MG TABLET.ER 900 MG PO (20:58)
[2024-01-31 21:17] LABS: Glucose, Whole Blood 118 mg/dL (60-115)
[2024-02-01] MEDS: Omeprazole 20 MG CAPSULE.DR PO (06:51)
[2024-02-01 07:58] LABS: Glucose, Whole Blood 94 mg/dL (60-115)
[2024-02-01 08:26] VITALS: BP 117/58; PULSE 87; RESP 18; TEMP 36.8; O2SAT 98
[2024-02-01] MEDS: DULoxetine HCl 60 MG CAPSULE.DR 120 MG PO (08:46)
[2024-02-01] MEDS: ARIPiprazole 10 MG TABLET PO (08:47)
[2024-02-01] MEDS: buPROPion HCl XL 300 MG TAB.ER.24H PO (08:47)
[2024-02-01] MEDS: metFORMIN HCl 1,000 MG TABLET 1000 MG PO ×2 (08:47→16:20)
[2024-02-01] MEDS: Docusate Sodium 100 MG CAPSULE PO (08:47)
[2024-02-01] MEDS: Atorvastatin Calcium 20 MG TABLET PO (08:47)
[2024-02-01] MEDS: Memantine HCl 10 MG TABLET PO ×2 (08:47→20:07)
[2024-02-01] MEDS: Glycopyrrolate 1 MG TABLET PO (08:47)
[2024-02-01] MEDS: HaloperidoL 0.5 MG TABLET 2.5 MG PO ×2 (08:47→20:07)
[2024-02-01] MEDS: Ezetimibe 10 MG TABLET PO (08:47)
[2024-02-01] MEDS: Acetaminophen 325 MG TABLET 650 MG PO (10:29)
[2024-02-01 14:18] VITALS: BP 145/71
[2024-02-01] MEDS: cloNIDine HCL 0.1 MG TABLET PO ×2 (14:18→20:12)
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
[2024-02-01 20:00] VITALS: BP 142/60; PULSE 86; RESP 15; TEMP 36.3; O2SAT 99
[2024-02-01] MEDS: Lithium Carbonate ER 450 MG TABLET.ER 900 MG PO (20:06)
[2024-02-01] MEDS: Donepezil HCl 10 MG TABLET PO (20:07)
[2024-02-01] MEDS: traZODone HCL 100 MG TABLET PO (20:07)
[2024-02-01] MEDS: Benztropine Mesylate 0.5 MG TABLET PO (21:24)
[2024-02-01 21:36] LABS: Glucose, Whole Blood 111 mg/dL (60-115)
[2024-02-02] MEDS: Omeprazole 20 MG CAPSULE.DR PO (06:54)
[2024-02-02 07:55] LABS: Glucose, Whole Blood 93 mg/dL (60-115)
[2024-02-02 08:17] VITALS: BP 141/69; PULSE 96; RESP 18; TEMP 36.5; O2SAT 100
[2024-02-02] MEDS: Docusate Sodium 100 MG CAPSULE PO (08:30)
[2024-02-02] MEDS: metFORMIN HCl 1,000 MG TABLET 1000 MG PO ×2 (08:30→16:54)
[2024-02-02] MEDS: buPROPion HCl XL 300 MG TAB.ER.24H PO (08:30)
[2024-02-02] MEDS: Glycopyrrolate 1 MG TABLET PO (08:30)
[2024-02-02] MEDS: HaloperidoL 0.5 MG TABLET 2.5 MG PO ×2 (08:30→20:11)
[2024-02-02] MEDS: Memantine HCl 10 MG TABLET PO ×2 (08:30→20:14)
[2024-02-02] MEDS: DULoxetine HCl 60 MG CAPSULE.DR 120 MG PO (08:30)
[2024-02-02] MEDS: Ezetimibe 10 MG TABLET PO (08:30)
[2024-02-02] MEDS: Atorvastatin Calcium 20 MG TABLET PO (08:30)
[2024-02-02] MEDS: ARIPiprazole 10 MG TABLET PO (08:30)
[2024-02-02 10:47] VITALS: BP 145/84
[2024-02-02] MEDS: cloNIDine HCL 0.1 MG TABLET PO ×2 (10:47→22:28)
[2024-02-02] MEDS: Benztropine Mesylate 0.5 MG TABLET PO (13:30)
[2024-02-02 16:07] VITALS: BP 137/63; PULSE 93; RESP 16; TEMP 36.4; O2SAT 97
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
[2024-02-02] MEDS: traZODone HCL 100 MG TABLET PO (20:10)
[2024-02-02] MEDS: Donepezil HCl 10 MG TABLET PO (20:13)
[2024-02-02] MEDS: Lithium Carbonate ER 450 MG TABLET.ER 900 MG PO (20:13)
[2024-02-02 20:29] LABS: Glucose, Whole Blood 87 mg/dL (60-115)
[2024-02-02 22:28] VITALS: BP 142/76
[2024-02-03] MEDS: Omeprazole 20 MG CAPSULE.DR PO (06:32)
[2024-02-03 08:00] VITALS: BP 110/52; PULSE 78; RESP 20; TEMP 36.4; O2SAT 97
[2024-02-03] MEDS: Glycopyrrolate 1 MG TABLET PO (08:06)
[2024-02-03] MEDS: Docusate Sodium 100 MG CAPSULE PO (08:06)
[2024-02-03] MEDS: buPROPion HCl XL 300 MG TAB.ER.24H PO (08:07)
[2024-02-03] MEDS: Memantine HCl 10 MG TABLET PO ×2 (08:07→19:48)
[2024-02-03] MEDS: Atorvastatin Calcium 20 MG TABLET PO (08:07)
[2024-02-03] MEDS: HaloperidoL 0.5 MG TABLET 2.5 MG PO ×2 (08:07→19:49)
[2024-02-03] MEDS: Ezetimibe 10 MG TABLET PO (08:07)
[2024-02-03] MEDS: DULoxetine HCl 60 MG CAPSULE.DR 120 MG PO (08:07)
[2024-02-03] MEDS: ARIPiprazole 10 MG TABLET PO (08:07)
[2024-02-03] MEDS: metFORMIN HCl 1,000 MG TABLET 1000 MG PO ×2 (08:08→17:40)
[2024-02-03 08:23] LABS: Glucose, Whole Blood 102 mg/dL (60-115)
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
[2024-02-03 11:31] VITALS: BP 164/70
[2024-02-03] MEDS: cloNIDine HCL 0.1 MG TABLET PO (11:31)
[2024-02-03] MEDS: Benztropine Mesylate 0.5 MG TABLET PO ×2 (11:31→19:49)
[2024-02-03 17:35] VITALS: BP 110/64; PULSE 87; RESP 18; TEMP 36.4; O2SAT 98
[2024-02-03] MEDS: traZODone HCL 100 MG TABLET PO (19:48)
[2024-02-03] MEDS: Donepezil HCl 10 MG TABLET PO (19:49)
[2024-02-03] MEDS: Lithium Carbonate ER 450 MG TABLET.ER 900 MG PO (19:49)
[2024-02-04 08:00] VITALS: BP 130/75; PULSE 78; RESP 16; TEMP 36.6; O2SAT 97
[2024-02-04] MEDS: Ezetimibe 10 MG TABLET PO (08:40)
[2024-02-04] MEDS: metFORMIN HCl 1,000 MG TABLET 1000 MG PO ×2 (08:40→17:53)
[2024-02-04] MEDS: Benztropine Mesylate 0.5 MG TABLET PO ×2 (08:40→17:54)
[2024-02-04] MEDS: ARIPiprazole 10 MG TABLET PO (08:40)
[2024-02-04] MEDS: Omeprazole 20 MG CAPSULE.DR PO (08:40)
[2024-02-04] MEDS: Atorvastatin Calcium 20 MG TABLET PO (08:40)
[2024-02-04] MEDS: Memantine HCl 10 MG TABLET PO ×2 (08:40→20:34)
[2024-02-04] MEDS: Glycopyrrolate 1 MG TABLET PO (08:40)
[2024-02-04] MEDS: Docusate Sodium 100 MG CAPSULE PO (08:40)
[2024-02-04] MEDS: DULoxetine HCl 60 MG CAPSULE.DR 120 MG PO (08:40)
[2024-02-04] MEDS: buPROPion HCl XL 300 MG TAB.ER.24H PO (08:41)
[2024-02-04] MEDS: HaloperidoL 0.5 MG TABLET 2.5 MG PO ×2 (08:44→20:33)
[2024-02-04 08:45] LABS: Neutrophils Absolute Auto 6.7 x10*3/uL (2.0-8.3)
[2024-02-04 09:05] LABS: Creatinine Clr Calc Pharmacy 96.6; Estimated Glomerular Filt Rate > 60
[2024-02-04] MEDS: Acetaminophen 325 MG TABLET 650 MG PO (11:35)
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
[2024-02-04 13:28] VITALS: BP 147/80
[2024-02-04] MEDS: cloNIDine HCL 0.1 MG TABLET PO ×2 (13:28→20:34)
[2024-02-04 19:52] VITALS: BP 135/76; PULSE 108; TEMP 36.2; O2SAT 97
[2024-02-04] MEDS: traZODone HCL 100 MG TABLET PO (20:34)
[2024-02-04] MEDS: Lithium Carbonate ER 450 MG TABLET.ER 900 MG PO (20:34)
[2024-02-04] MEDS: Donepezil HCl 10 MG TABLET PO (20:34)
[2024-02-05] MEDS: Omeprazole 20 MG CAPSULE.DR PO (06:54)
[2024-02-05 08:00] VITALS: BP 117/63; PULSE 77; RESP 16; TEMP 36.4; O2SAT 97
[2024-02-05] MEDS: HaloperidoL 0.5 MG TABLET 2.5 MG PO ×2 (08:26→20:14)
[2024-02-05] MEDS: Glycopyrrolate 1 MG TABLET PO (08:27)
[2024-02-05] MEDS: DULoxetine HCl 60 MG CAPSULE.DR 120 MG PO (08:27)
[2024-02-05] MEDS: ARIPiprazole 10 MG TABLET PO (08:27)
[2024-02-05] MEDS: Ezetimibe 10 MG TABLET PO (08:27)
[2024-02-05] MEDS: metFORMIN HCl 1,000 MG TABLET 1000 MG PO ×2 (08:27→17:27)
[2024-02-05] MEDS: Memantine HCl 10 MG TABLET PO ×2 (08:27→20:15)
[2024-02-05] MEDS: buPROPion HCl XL 300 MG TAB.ER.24H PO (08:27)
[2024-02-05] MEDS: Docusate Sodium 100 MG CAPSULE PO (08:28)
[2024-02-05] MEDS: Atorvastatin Calcium 20 MG TABLET PO (08:28)
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
[2024-02-05] MEDS: Milk of Magnesia 30 ML ORAL.SUSP PO ×2 (11:37→20:18)
[2024-02-05] MEDS: Acetaminophen 325 MG TABLET 650 MG PO (12:20)
[2024-02-05] MEDS: cloNIDine HCL 0.1 MG TABLET PO ×2 (15:10→20:15)
[2024-02-05 17:52] VITALS: BMI 30.2
[2024-02-05 20:00] VITALS: BP 147/76; PULSE 85; TEMP 36.3; O2SAT 98
[2024-02-05] MEDS: Donepezil HCl 10 MG TABLET PO (20:15)
[2024-02-05] MEDS: traZODone HCL 100 MG TABLET PO (20:15)
[2024-02-05] MEDS: Lithium Carbonate ER 450 MG TABLET.ER 900 MG PO (20:15)
[2024-02-06] MEDS: Omeprazole 20 MG CAPSULE.DR PO (06:45)
[2024-02-06 07:10] VITALS: BP 132/78
[2024-02-06] MEDS: cloNIDine HCL 0.1 MG TABLET PO ×3 (07:10→18:38)
[2024-02-06 08:00] VITALS: BP 124/70; TEMP 36.3
[2024-02-06] MEDS: Ezetimibe 10 MG TABLET PO (09:07)
[2024-02-06] MEDS: Memantine HCl 10 MG TABLET PO ×2 (09:07→20:24)
[2024-02-06] MEDS: Glycopyrrolate 1 MG TABLET PO (09:07)
[2024-02-06] MEDS: Docusate Sodium 100 MG CAPSULE PO (09:07)
[2024-02-06] MEDS: ARIPiprazole 10 MG TABLET PO (09:07)
[2024-02-06] MEDS: buPROPion HCl XL 300 MG TAB.ER.24H PO (09:07)
[2024-02-06] MEDS: metFORMIN HCl 1,000 MG TABLET 1000 MG PO ×2 (09:07→16:44)
[2024-02-06] MEDS: HaloperidoL 0.5 MG TABLET 2.5 MG PO ×2 (09:08→20:24)
[2024-02-06] MEDS: DULoxetine HCl 60 MG CAPSULE.DR 120 MG PO (09:08)
[2024-02-06] MEDS: Atorvastatin Calcium 20 MG TABLET PO (09:08)
[2024-02-06 11:18] VITALS: BP 142/62
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
[2024-02-06] MEDS: Acetaminophen 325 MG TABLET 650 MG PO (16:44)
[2024-02-06 18:38] VITALS: BP 151/70
[2024-02-06] MEDS: Benztropine Mesylate 0.5 MG TABLET PO (18:38)
[2024-02-06 20:00] VITALS: BP 129/72; PULSE 90; RESP 16; TEMP 36.3; O2SAT 99
[2024-02-06] MEDS: Donepezil HCl 10 MG TABLET PO (20:24)
[2024-02-06] MEDS: traZODone HCL 100 MG TABLET PO (20:24)
[2024-02-06] MEDS: Lithium Carbonate ER 450 MG TABLET.ER 900 MG PO ×2 (20:34→20:45)
[2024-02-07] MEDS: Omeprazole 20 MG CAPSULE.DR PO (06:39)
[2024-02-07 08:00] VITALS: BP 126/58; PULSE 78; RESP 16; TEMP 36.4; O2SAT 97
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
[2024-02-07] MEDS: Benztropine Mesylate 0.5 MG TABLET PO ×2 (09:07→19:14)
[2024-02-07] MEDS: buPROPion HCl XL 300 MG TAB.ER.24H PO (09:07)
[2024-02-07] MEDS: Memantine HCl 10 MG TABLET PO ×2 (09:07→20:40)
[2024-02-07] MEDS: ARIPiprazole 10 MG TABLET PO (09:07)
[2024-02-07] MEDS: Docusate Sodium 100 MG CAPSULE PO (09:08)
[2024-02-07] MEDS: DULoxetine HCl 60 MG CAPSULE.DR 120 MG PO (09:08)
[2024-02-07] MEDS: Ezetimibe 10 MG TABLET PO (09:08)
[2024-02-07] MEDS: HaloperidoL 0.5 MG TABLET 2.5 MG PO ×2 (09:08→20:40)
[2024-02-07] MEDS: Atorvastatin Calcium 20 MG TABLET PO (09:08)
[2024-02-07] MEDS: Glycopyrrolate 1 MG TABLET PO (09:08)
[2024-02-07] MEDS: metFORMIN HCl 1,000 MG TABLET 1000 MG PO ×2 (09:08→17:55)
[2024-02-07] MEDS: Acetaminophen 325 MG TABLET 650 MG PO (11:58)
[2024-02-07] MEDS: polyethylene glycoL 3350 17 GM POWD.PACK PO (11:59)
[2024-02-07] MEDS: Milk of Magnesia 30 ML ORAL.SUSP PO (13:47)
[2024-02-07 18:13] VITALS: BP 136/71
[2024-02-07] MEDS: cloNIDine HCL 0.1 MG TABLET PO (18:13)
[2024-02-07 20:00] VITALS: BP 154/79; PULSE 89; RESP 16; TEMP 36.3; O2SAT 97
[2024-02-07] MEDS: traZODone HCL 100 MG TABLET PO (20:40)
[2024-02-07] MEDS: Donepezil HCl 10 MG TABLET PO (20:40)
--- NOTE | 2024-02-08 06:10 | PC.NURSE ---
Patient focused on constipation and said the Miralax was not effective; he also said that Colace twice a day has been effective in the past.
[2024-02-08] MEDS: Omeprazole 20 MG CAPSULE.DR PO (06:54)
[2024-02-08 08:00] VITALS: BP 144/70; PULSE 81; RESP 16; TEMP 36.5; O2SAT 97
[2024-02-08] MEDS: HaloperidoL 0.5 MG TABLET PO (08:11)
[2024-02-08] MEDS: DULoxetine HCl 60 MG CAPSULE.DR 120 MG PO (08:11)
[2024-02-08] MEDS: HaloperidoL 1 MG TABLET 2 MG PO ×2 (08:11→20:47)
[2024-02-08] MEDS: Benztropine Mesylate 0.5 MG TABLET PO (08:12)
[2024-02-08] MEDS: ARIPiprazole 10 MG TABLET PO (08:12)
[2024-02-08] MEDS: Memantine HCl 10 MG TABLET PO ×2 (08:12→20:48)
[2024-02-08] MEDS: metFORMIN HCl 1,000 MG TABLET 1000 MG PO ×2 (08:12→15:35)
[2024-02-08] MEDS: Glycopyrrolate 1 MG TABLET PO (08:12)
[2024-02-08] MEDS: Atorvastatin Calcium 20 MG TABLET PO (08:12)
[2024-02-08] MEDS: Ezetimibe 10 MG TABLET PO (08:12)
[2024-02-08] MEDS: buPROPion HCl XL 300 MG TAB.ER.24H PO (08:12)
[2024-02-08] MEDS: Docusate Sodium 100 MG CAPSULE PO (08:12)
[2024-02-08] MEDS: Magnesium Hydrox/Alum Hydrox 30 ML ORAL.SUSP PO (08:15)
[2024-02-08] MEDS: bisacodyL 5 MG TABLET.DR 10 MG PO (15:34)
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
[2024-02-08 20:00] VITALS: BP 145/77; PULSE 87; RESP 16; TEMP 36.5; O2SAT 98
[2024-02-08] MEDS: Donepezil HCl 10 MG TABLET PO (20:47)
[2024-02-08] MEDS: Benztropine Mesylate 1 MG TABLET PO (20:48)
[2024-02-08] MEDS: traZODone HCL 100 MG TABLET PO (20:48)
[2024-02-08] MEDS: Lithium Carbonate ER 450 MG TABLET.ER 900 MG PO (20:48)
[2024-02-08] MEDS: HaloperidoL 1 MG TABLET 3 MG PO (21:06)
[2024-02-09] MEDS: Omeprazole 20 MG CAPSULE.DR PO (06:33)
[2024-02-09 08:00] VITALS: BP 116/67; PULSE 94; RESP 16; TEMP 36.6; O2SAT 98
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
[2024-02-09] MEDS: metFORMIN HCl 1,000 MG TABLET 1000 MG PO ×2 (08:37→18:21)
[2024-02-09] MEDS: buPROPion HCl XL 300 MG TAB.ER.24H PO (08:37)
[2024-02-09] MEDS: Glycopyrrolate 1 MG TABLET PO (08:37)
[2024-02-09] MEDS: Docusate Sodium 100 MG CAPSULE PO (08:37)
[2024-02-09 08:38] LABS: Lithium 0.89 mmol/L (0.60-1.20)
[2024-02-09] MEDS: ARIPiprazole 10 MG TABLET PO (08:38)
[2024-02-09] MEDS: Benztropine Mesylate 1 MG TABLET PO (08:38)
[2024-02-09] MEDS: DULoxetine HCl 60 MG CAPSULE.DR 120 MG PO (08:38)
[2024-02-09] MEDS: Acetaminophen 325 MG TABLET 650 MG PO ×2 (08:38→15:22)
[2024-02-09] MEDS: Memantine HCl 10 MG TABLET PO ×2 (08:38→20:14)
[2024-02-09] MEDS: HaloperidoL 1 MG TABLET 3 MG PO (08:39)
[2024-02-09] MEDS: Atorvastatin Calcium 20 MG TABLET PO (08:39)
[2024-02-09] MEDS: Ezetimibe 10 MG TABLET PO (08:39)
[2024-02-09] MEDS: Milk of Magnesia 30 ML ORAL.SUSP PO (14:27)
[2024-02-09] MEDS: polyethylene glycoL 3350 17 GM POWD.PACK PO (15:24)
[2024-02-09 19:38] VITALS: BP 142/70; PULSE 97; RESP 18; TEMP 36.7; O2SAT 100
[2024-02-09] MEDS: HaloperidoL 1 MG TABLET 2 MG PO (20:14)
[2024-02-09] MEDS: Donepezil HCl 10 MG TABLET PO (20:14)
[2024-02-09] MEDS: Lithium Carbonate ER 450 MG TABLET.ER 900 MG PO (20:14)
[2024-02-09] MEDS: traZODone HCL 100 MG TABLET PO (20:14)
[2024-02-09] MEDS: cloNIDine HCL 0.1 MG TABLET PO (22:50)
[2024-02-10] MEDS: Omeprazole 20 MG CAPSULE.DR PO (06:30)
[2024-02-10 08:15] VITALS: BP 111/58; PULSE 81; RESP 18; TEMP 36.4; O2SAT 97
[2024-02-10] MEDS: ARIPiprazole 10 MG TABLET PO (08:34)
[2024-02-10] MEDS: HaloperidoL 1 MG TABLET 2 MG PO ×2 (08:34→20:17)
[2024-02-10] MEDS: Memantine HCl 10 MG TABLET PO ×2 (08:34→20:16)
[2024-02-10] MEDS: Ezetimibe 10 MG TABLET PO (08:34)
[2024-02-10] MEDS: metFORMIN HCl 1,000 MG TABLET 1000 MG PO ×2 (08:34→18:01)
[2024-02-10] MEDS: DULoxetine HCl 60 MG CAPSULE.DR 120 MG PO (08:34)
[2024-02-10] MEDS: buPROPion HCl XL 300 MG TAB.ER.24H PO (08:35)
[2024-02-10] MEDS: Docusate Sodium 100 MG CAPSULE PO (08:35)
[2024-02-10] MEDS: Glycopyrrolate 1 MG TABLET PO (08:35)
[2024-02-10] MEDS: Atorvastatin Calcium 20 MG TABLET PO (08:35)
[2024-02-10] MEDS: Acetaminophen 325 MG TABLET 650 MG PO (08:48)
[2024-02-10] MEDS: bisacodyL 5 MG TABLET.DR 10 MG PO (11:23)
[2024-02-10] MEDS: polyethylene glycoL 3350 17 GM POWD.PACK PO (13:12)
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
[2024-02-10] MEDS: Milk of Magnesia 30 ML ORAL.SUSP PO (15:39)
[2024-02-10 20:00] VITALS: BP 179/100; PULSE 87; RESP 18; TEMP 36.3; O2SAT 97
[2024-02-10] MEDS: Lithium Carbonate ER 300 MG TABLET.ER 600 MG PO (20:16)
[2024-02-10] MEDS: Donepezil HCl 10 MG TABLET PO (20:17)
[2024-02-10] MEDS: traZODone HCL 100 MG TABLET PO (20:17)
[2024-02-10] MEDS: Benztropine Mesylate 0.5 MG TABLET PO (20:17)
[2024-02-11] MEDS: Omeprazole 20 MG CAPSULE.DR PO (06:49)
[2024-02-11 08:45] LABS: Neut%MD 65.3 %; Neutrophils Absolute Auto 5.6 x10*3/uL (2.0-8.3); WBCANC 8.5 X10*3/uL
[2024-02-11 08:50] VITALS: BP 137/71; PULSE 103; RESP 16; TEMP 36.4; O2SAT 97
[2024-02-11] MEDS: Benztropine Mesylate 0.5 MG TABLET PO (09:03)
[2024-02-11] MEDS: Memantine HCl 10 MG TABLET PO (09:03)
[2024-02-11] MEDS: Glycopyrrolate 1 MG TABLET PO (09:03)
[2024-02-11] MEDS: metFORMIN HCl 1,000 MG TABLET 1000 MG PO (09:03)
[2024-02-11] MEDS: ARIPiprazole 10 MG TABLET PO (09:03)
[2024-02-11] MEDS: buPROPion HCl XL 300 MG TAB.ER.24H PO (09:03)
[2024-02-11] MEDS: Atorvastatin Calcium 20 MG TABLET PO (09:03)
[2024-02-11 09:04] LABS: Creatinine Clr Calc Pharmacy 91.3; Estimated Glomerular Filt Rate > 60
[2024-02-11] MEDS: DULoxetine HCl 60 MG CAPSULE.DR 120 MG PO (09:04)
[2024-02-11] MEDS: Docusate Sodium 100 MG CAPSULE PO (09:04)
[2024-02-11] MEDS: Ezetimibe 10 MG TABLET PO (09:04)
[2024-02-11] MEDS: HaloperidoL 1 MG TABLET 2 MG PO (09:04)
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
== END 2024-02-11 11:54 | disposition home or self-care (01) | DRG 885 ==
LOC: HO.ED 17:38 → HO.PM5 17:42
PROVIDERS: Clinical Nurse Specialist Psychiatric/Mental Health, Adult; Physician Assistant; Registered Nurse; Admitting Provider Psychiatry & Neurology Psychiatry; Emergency Provider Emergency Medicine; PCP Hospitalist; Visit Provider Psychiatry & Neurology Psychiatry
DX: F25.1 Schizoaffective disorder, depressive type (principal); F43.10 Post-traumatic stress disorder, unspecified; F03.90 Unspecified dementia, unspecified severity, without behavioral disturbance, psychotic disturbance, mood disturbance, and anxiety; E11.9 Type 2 diabetes mellitus without complications; Z87.891 Personal history of nicotine dependence; Z79.84 Long term (current) use of oral hypoglycemic drugs; Z79.899 Other long term (current) drug therapy
CPT/HCPCS: 36415; 80051; 80053; 80061; 80159; 80178; 80307; 81003; 82565; 82607; 82746; 82947; 83036; 83735; 84439; 84443; 84520; 85025; 85048; 92526; 92610; 93005; 99285; S9485

== ENCOUNTER → 2024-01-21 17:35 | Outpatient (BNV) | payer MEDICARE, MEDICAID, SELFPAY | PROVIDERS: Admitting Provider Psychiatry & Neurology Psychiatry; Emergency Provider Emergency Medicine; PCP Hospitalist; Visit Provider Psychiatry & Neurology Psychiatry | DX: F25.1 Schizoaffective disorder, depressive type (principal); F03.90 Unspecified dementia, unspecified severity, without behavioral disturbance, psychotic disturbance, mood disturbance, and anxiety; F43.11 Post-traumatic stress disorder, acute | CPT/HCPCS: 90792; 99231; 99232; 99239 ==